=== PATIENT | female | born 1965 | race Caucasian/White ===

== ENCOUNTER 2023-05-16 08:31 | Emergency (ER) | payer MEDICAID ==
[~2023-05-16] VITALS: Ht 144.8 cm; Wt 70.8 kg
[2023-05-16 08:36] VITALS: BP 119/75; PULSE 98; RESP 18; TEMP 98.2; O2SAT 98
[2023-05-16 08:54] VITALS: TEMP 98.2
[2023-05-16] MEDS ORDERED: SYN.05 PO (09:16)
[2023-05-16] MEDS ORDERED: LEVOTHYROXINE 0.05 MG TAB ONE (09:19)
[2023-05-16] MEDS ORDERED: LEVOTHYROXINE 0.05 MG TAB PO SCH (09:25)
[2023-05-16 09:26] LABS: BASOPHILS # (AUTO) 0.1 K/uL (0.00-0.22); BASOPHILS % (AUTO) 1.2 % (0.0-2.0); EOSINOPHILS # (AUTO) 0.1 K/uL (0-0.4); EOSINOPHILS % (AUTO) 1.4 % (0.0-4.0); HEMATOCRIT 41.9 % (36-48); HEMOGLOBIN 14.1 g/dL (12.0-16.0); LYMPHOCYTES # (AUTO) 1.9 K/uL (2.5-16.5); LYMPHOCYTES % (AUTO) 28.9 % (20.5-51.1); MEAN CORPUSCULAR HEMOGLOBIN 29 pg (27-31); MEAN CORPUSCULAR HGB CONC 34 g/dL (33-37); MEAN CORPUSCULAR VOLUME 86.2 fL (80-94); MONOCYTES # (AUTO) 0.4 K/uL (0.8-1.0); MONOCYTES % (AUTO) 6.4 % (1.7-9.3); NEUTROPHILS % (AUTO) 62.1 % (42.2-75.2); PLATELET COUNT (AUTO) 202 K/uL (140-450); RED BLOOD CELL COUNT(AUTO) 4.86 MIL/uL (4.20-5.40); RED CELL DISTRIBUTION WIDTH 13.8 % (11.6-13.7); WHITE BLOOD COUNT (AUTO) 6.4 K/uL (4.8-10.8)
[2023-05-16 10:49] LABS: ANION GAP 13.3 (8-16); CALCIUM 9.3 mg/dL (8.5-10.1); CARBON DIOXIDE 25.1 mmol/L (21-32); CREATININE 0.7 mg/dL (0.6-1.3); POTASSIUM 4.4 mmol/L (3.5-5.1)
[2023-05-16 11:08] VITALS: BP 135/78; PULSE 76; RESP 14; O2SAT 100
[2023-05-17] MEDS ORDERED: LEVOTHYROXINE 0.05 MG TAB PO SCH (06:30)
== END 2023-05-16 11:08 | disposition home or self-care (01) ==
LOC: MED 08:31
DX: F43.9 Reaction to severe stress, unspecified (principal); F41.9 Anxiety disorder, unspecified; Z76.0 Encounter for issue of repeat prescription
CPT/HCPCS: 36415; 80048; 84443; 85025; 99281; 99283

== ENCOUNTER 2023-06-30 13:14 | Emergency (ER) | payer MEDICAID ==
[~2023-06-30] VITALS: Ht 157.5 cm; Wt 71.7 kg
[~2023-06-30 13:14] MED LIST: SYN.05 PO
[2023-06-30 13:29] VITALS: BP 105/67; PULSE 70; RESP 20; TEMP 97.7; O2SAT 96
[2023-06-30 14:47] LABS: BASOPHILS # (AUTO) 0.1 K/uL (0.00-0.22); EOSINOPHILS # (AUTO) 0.1 K/uL (0-0.4); EOSINOPHILS % (AUTO) 0.8 % (0.0-4.0); HEMATOCRIT 40.7 % (36-48); HEMOGLOBIN 13.7 g/dL (12.0-16.0); LYMPHOCYTES # (AUTO) 2.1 K/uL (2.5-16.5); LYMPHOCYTES % (AUTO) 27.7 % (20.5-51.1); MEAN CORPUSCULAR HEMOGLOBIN 29 pg (27-31); MEAN CORPUSCULAR HGB CONC 34 g/dL (33-37); MEAN CORPUSCULAR VOLUME 86.8 fL (80-94); MONOCYTES # (AUTO) 0.5 K/uL (0.8-1.0); MONOCYTES % (AUTO) 6.2 % (1.7-9.3); NEUTROPHILS # (AUTO) 4.8 K/uL (1.8-7.7); NEUTROPHILS % (AUTO) 64.3 % (42.2-75.2); PLATELET COUNT (AUTO) 222 K/uL (140-450); RED BLOOD CELL COUNT(AUTO) 4.69 MIL/uL (4.20-5.40); WHITE BLOOD COUNT (AUTO) 7.5 K/uL (4.8-10.8)
[2023-06-30 14:58] LABS: ANION GAP 7.9 (8-16); CALCIUM 8.7 mg/dL (8.5-10.1); CARBON DIOXIDE 32.3 mmol/L (21-32); CREATININE 1.1 mg/dL (0.6-1.3); POTASSIUM 4.2 mmol/L (3.5-5.1)
[2023-06-30 15:12] LABS: FREE T4 (FREE THYROXINE) 0.64 ng/dL (0.76-1.46); THYROID STIMULATING HORMONE 6.02 uIU/mL (0.34-3.74)
[2023-06-30] MEDS ORDERED: SYN.05 PO (15:18)
[2023-06-30] MEDS ORDERED: ACETAMINOPHEN 325 MG TAB PO ONE (15:20)
[2023-06-30] MEDS ORDERED: NACL 0.9% 1,000 ML IV SCH (15:40)
[2023-06-30 16:27] VITALS: BP 112/67; PULSE 70; RESP 20; TEMP 97.7; O2SAT 99
== END 2023-06-30 16:27 | disposition home or self-care (01) ==
LOC: MED 13:14
DX: E03.9 Hypothyroidism, unspecified (principal); Z76.0 Encounter for issue of repeat prescription; Z79.899 Other long term (current) drug therapy
CPT/HCPCS: 36415; 80048; 84439; 84443; 84484; 85025; 99283